=== PATIENT | male | born 1960 ===

== ENCOUNTER 2022-03-18 15:25 | Inpatient (IN) ==
[2022-03-18] MEDS ORDERED: SODIUM CHLORIDE 0.9% 1,000 ML IV STA (16:15)
[2022-03-18] MEDS ORDERED: PIPERACILLIN/TAZOBACTAM 3,375 MG in SODIUM CHLORIDE 0.9% 100 ML IV STA (16:33)
[2022-03-18 16:46] LABS: Basophils % 0.4 % (0.0-0.8); Eosinophils % 0.4 % (0.00-10.9); Hematocrit 42.3 VOL% (42.0-52.0); Immature Granulocytes % 0.4 %; Immature Granulocytes Absolute 0.04 #; Lymphocytes # 1.2 10*3/uL (1.4-4.0); Lymphocytes % 11.8 % (21.2-54.2); Mean Corpuscular HGB Conc 33.1 GM/DL (32-36); Mean Platelet Volume 11.7 FL (9.6-12.0); Monocytes # 0.6 10*3/uL (0.11-0.8); Monocytes % 6.1 % (1.7-12.7); Neutrophils % 80.9 % (38.7-73.9); Platelet Count 235 T/CUMM (130-400); Red Blood Count 4.86 MC/CUMM (3.8-5.5); Red Cell Distribution Width 13.5 % (9.3-17.3)
[2022-03-18 16:59] LABS: PT Patient Result 10.9 SECS (10.1-12.1); Partial Thromboplastin Time 27.8 SECS (23.7-32.9)
[2022-03-18 17:22] LABS: Albumin 2.6 G/DL (3.4-5.0); Bilirubin,Total 0.9 MG/DL (0.20-1.00); Calcium 8.5 MG/DL (8.5-10.1); Potassium 4.5 MMOL/L (3.5-5.1); Thyroid Stimulating Hormone 0.89 uIU/ml (0.358-3.74); Total Protein 6.6 G/DL (6.4-8.2)
[2022-03-18] MEDS ORDERED: HEPARIN 5,000 UNIT/1 ML VIAL ONE (17:31)
[2022-03-18] MEDS ORDERED: HEPARIN/NACL 0.9% 2 UNITS/ML 2,000 UNIT/1,000 ML BAG IV ONE (17:38)
[2022-03-18] MEDS ORDERED: MIDAZOLAM 2 MG/2 ML VIAL ONE (17:39)
[2022-03-18] MEDS ORDERED: HYDROmorphone 1 MG/1 ML SYRINGE ONE ×2 (17:39→18:08)
[2022-03-18] MEDS ORDERED: HEPARIN 5,000 UNIT/1 ML VIAL IV STA (17:41)
[2022-03-18] MEDS ORDERED: NITROGLYCERIN DRIP 50 MG/250 ML BOTTLE IV ONE (17:50)
[2022-03-18] MEDS ORDERED: VERAPAMIL 5 MG/2 ML VIAL ONE (17:51)
[2022-03-18 18:18] VITALS: BP 116/84
[2022-03-18] MEDS ORDERED: FUROSEMIDE 40 MG/4 ML VIAL ONE (18:22)
[2022-03-18] MEDS ORDERED: MORPHINE 2 MG/1 ML SYRINGE IV PRN (18:34)
[2022-03-18] MEDS ORDERED: MAGNESIUM SULF RIDER 2 GM/50 ML PREMIX IV PRN (18:34)
[2022-03-18] MEDS ORDERED: MAGNESIUM SULF RIDER 4 GM/100 ML PREMIX IV PRN (18:34)
[2022-03-18] MEDS ORDERED: NITROGLYCERIN 2% OINT 1 INCH/GM PACK TOP ONE (18:34)
[2022-03-18] MEDS ORDERED: ETOMIDATE 20 MG/10 ML VIAL IV ONE (19:04)
[2022-03-18] MEDS ORDERED: VECURONIUM 10 MG VIAL IV ONE (19:04)
[2022-03-18] MEDS ORDERED: EPINEPHrine 1 MG/10 ML SYRINGE IV ONE (19:10)
[2022-03-18] MEDS ORDERED: SODIUM BICARBONATE 50 MEQ/50 ML SYRINGE IV ONE (19:11)
[2022-03-18] MEDS ORDERED: CALCIUM CHLORIDE 1,000 MG/10 ML SYRINGE IV ONE (19:16)
[2022-03-18] MEDS ORDERED: ROSUVASTATIN 20 MG TABLET PO SCH (21:00)
[2022-03-19] MEDS ORDERED: ASPIRIN EC 81 MG TABLET PO SCH (09:00)
== END 2022-03-18 19:20 | disposition expired ==
LOC: N.ED 15:25 → N.CC 17:43
PROVIDERS: ADMIT Internal Medicine Cardiovascular Disease; ATTEND Internal Medicine Cardiovascular Disease
PROC: CLCCHCL (ICD-10-PCS; 2022-03-18 18:45)